=== PATIENT | male | born 1985 | race American Indian/Alaskan Native ===

== ENCOUNTER 2016-10-08 18:11 | Emergency (ER) | payer SELFPAY ==
[2016-10-09] MEDS ORDERED: NORCO 5/325 PO ONE (01:01)
[2016-10-09] MEDS ORDERED: TORADOL IM ONE (01:01)
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
[2016-10-09 01:17] VITALS: BP 151/94
== END 2016-10-09 01:23 | disposition home or self-care (01) ==
LOC: ED 18:11
DX: S39.012A Strain of muscle, fascia and tendon of lower back, initial encounter (principal); M79.1 Myalgia; J45.909 Unspecified asthma, uncomplicated; F17.200 Nicotine dependence, unspecified, uncomplicated; X58.XXXA Exposure to other specified factors, initial encounter; Y93.89 Activity, other specified; Y99.8 Other external cause status; Y92.89 Other specified places as the place of occurrence of the external cause
CPT/HCPCS: 96372; 99282; J1885